=== PATIENT | male | born 1995 | race Caucasian/White ===

== ENCOUNTER 2016-03-19 18:17 | Emergency (ER) | payer OTHER ==
[~2016-03-19] VITALS: Ht 190.5 cm; Wt 82.1 kg
[~2016-03-19 18:17] MED LIST: TRAZODONE HCL100 MG PO
[2016-03-19 20:41] VITALS: BP 125/82
== END 2016-03-19 20:42 | disposition home or self-care (01) ==
LOC: EXP 18:17 → EME 18:17 → EXP 20:42
DX: S60.221A Contusion of right hand, initial encounter (principal); S60.511A Abrasion of right hand, initial encounter; Y04.0XXA Assault by unarmed brawl or fight, initial encounter
CPT/HCPCS: 73130; 99281; 99283

== ENCOUNTER 2016-12-28 09:13 | Emergency (ER) | payer OTHER ==
[~2016-12-28] VITALS: Ht 193 cm; Wt 88.2 kg
[2016-12-28 10:36] LABS: EOSINOPHIL (%) 0.5 % (0-5); EOSINOPHIL COUNT 0.1 K/uL (0-0.3); HEMATOCRIT 42.2 % (38.0-50.0); IMMATURE GRANULOCYTE (%) 0.3 % (0.0-0.7); INSTRUMENT ABS NEUTROPHIL CT 8.3 K/uL; LYMPHOCYTE COUNT 1.5 K/uL (1.0-2.8); MCH 30.2 PG (29.0-34.0); MCHC 35.8 G/DL (30.0-36.0); MCV 84.4 FL (86-99); MEAN PLAT.VOLUME 10.4 uM^3 (9.0-12.4); MONOCYTE (%) 5.8 % (3-12); MONOCYTE COUNT 0.6 K/uL (0-0.8); NEUTROPHIL (%) 78.8 % (45-76); NEUTROPHIL COUNT 8.3 K/uL (1.8-6.4); PLATELET COUNT 234 K/uL (156-360); RBC DIS.WIDTH-CV 11.5 % (11.8-14.6); RBC DIS.WIDTH-SD 35.1 % (39-53); WHITE BLOOD COUNT 10.5 K/uL (4.1-10.2)
[2016-12-28 10:49] LABS: CHLORIDE 105 mEq/L (99-109); POTASSIUM 3.6 mEq/L (3.7-5.4); SODIUM 140 mEq/L (136-147)
[2016-12-28 10:51] LABS: GLUCOSE 83 mg/dL (70-99)
[2016-12-28 10:52] LABS: ANION GAP 10 MEQ/L (2-14)
[2016-12-28 10:54] LABS: SERUM ETHYL ALCOHOL < 10 mg/dL
[2016-12-28 10:55] LABS: GFR ESTIMATE (CALCULATED) > 59 mL/min/
[2016-12-28 10:56] LABS: UREA NITROGEN (BUN) 12 mg/dL (9-23)
[2016-12-28] MEDS ORDERED: TYLENOL WITH C1 EACH PO (12:15)
[2016-12-28 12:33] VITALS: BP 133/81
== END 2016-12-28 12:33 | disposition home or self-care (01) ==
LOC: EME 09:13
PROVIDERS: Emergency Medicine
DX: S00.83XA Contusion of other part of head, initial encounter (principal); S60.221A Contusion of right hand, initial encounter; S20.229A Contusion of unspecified back wall of thorax, initial encounter; V47.0XXA Car driver injured in collision with fixed or stationary object in nontraffic accident, initial encounter; F41.9 Anxiety disorder, unspecified
CPT/HCPCS: 70450; 70486; 71260; 72125; 72129; 72132; 73130; 74177; 80048; 81003; 85025; 99281; 99284; G0480; J2270; J7030